=== PATIENT | male | born 1965 | race Caucasian/White ===

== ENCOUNTER 2019-07-12 06:37 | Day surgery (SDC) | payer OTHER ==
[~2019-07-12] VITALS: Ht 162.6 cm; Wt 75.7 kg
[~2019-07-12 06:37] MED LIST: 5-Htp100 MG PO; AMLO10 PO; CYCL10 PO; DIM PO; Fiorinal Capsu1 EACH PO; Flonase 0.05% N16 GM; Glucosamine Co1 EAC1 PO; LISI20 PO; Loratadine10 MG PO; SILDENAFIL20 MG PO; St. John's Wor300 M1 PO; THERA1 EACH PO; Triamcinolone A15 G3 TOP
--- NOTE | 2019-07-12 10:19 | NUR ---
Ambulatory in Day Surgery. Surgical site prepped with 2% Chlorhexidine cloth wipe. History, Chart, Medications and Allergies reviewed before start of procedure.Lungs clear T/O to Auscultation. Patient confirms NPO status and agrees with scheduled surgery. Pre-Op teaching done. Pt verbalizes understanding. Patient States Post-Procedure ride home has been arranged. Patient reports completing Chlorhexadine shower X2 prior to admission to hospital.
--- NOTE | 2019-07-12 13:12 | NUR ---
Patient up to Ambulate independently. Gait steady. PT ABLE TO URINATE. Discharge instructions reviewed with patient. Patient verbalizes understanding. Copy given to patient to take home. Discharged via wheelchair to private car for ride home WITH SPOUSE.
== END 2019-07-12 23:41 | disposition home or self-care (01) ==
LOC: ORSCMMR 06:37 → ORD 10:15 → ORSCMMR 10:15
PROVIDERS: Surgery
PROC: 0YU50JZ Supplement Right Inguinal Region with Synthetic Substitute, Open Approach (ICD-10-PCS; principal; 2019-07-12 10:15)
DX: K40.90 Unilateral inguinal hernia, without obstruction or gangrene, not specified as recurrent (principal); I10 Essential (primary) hypertension; Z79.899 Other long term (current) drug therapy
CPT/HCPCS: C1781; J0690; J1100; J1885; J2250; J2405; J2704; J3010; J7120

== ENCOUNTER 2019-07-15 07:01 | Day surgery (SDC) | payer OTHER ==
[~2019-07-15] VITALS: Ht 162.6 cm; Wt 74.7 kg
--- NOTE | 2019-07-15 10:11 | NUR ---
07/15/19 1011 Margot Rowe 2 HEMORRHOID BANDS PLACED. LIDOCAINE JELLY APPLIED TO ANUS BY
--- NOTE | 2019-07-15 10:45 | NUR ---
07/15/19 1045 Margot Rowe PT INSTRUCTED TO REMAIN ON A SOFT DIET AND USE COLACE FOR THE NEXT COUPLE DAYS.
--- NOTE | 2019-07-15 10:46 | NUR ---
07/15/19 1046 Margot Rowe DELAYED ENTRY 0903 DR CONNOLLY AWARE PT RECENTLY HAD INGUINAL HERNIA SURGERY ON 07/11/19
== END 2019-07-15 10:38 | disposition home or self-care (01) ==
LOC: ORSCSDS 07:01
PROVIDERS: Internal Medicine Gastroenterology
PROC: 0DJD8ZZ Inspection of Lower Intestinal Tract, Via Natural or Artificial Opening Endoscopic (ICD-10-PCS; principal; 2019-07-15 09:30)
PROC: 06LY0CC Occlusion of Hemorrhoidal Plexus with Extraluminal Device, Open Approach (ICD-10-PCS; principal; 2019-07-15 09:30)
DX: Z12.11 Encounter for screening for malignant neoplasm of colon (principal); K57.30 Diverticulosis of large intestine without perforation or abscess without bleeding; K64.8 Other hemorrhoids; I10 Essential (primary) hypertension; Z87.891 Personal history of nicotine dependence; Z79.899 Other long term (current) drug therapy
CPT/HCPCS: J2704; J7120

== ENCOUNTER 2019-07-18 06:41 | Day surgery (SDC) | payer OTHER ==
[~2019-07-18] VITALS: Ht 162.6 cm; Wt 75.5 kg
--- NOTE | 2019-07-18 07:33 | NUR ---
07/18/19 0733 Luna Wong BLOOD FOR PRP DRAWN AND DELIVERED TO OR AND SPUN.
== END 2019-07-18 11:32 | disposition home or self-care (01) ==
LOC: ORSCSDS 06:41
PROVIDERS: Orthopaedic Surgery
PROC: 0LS24ZZ Reposition Left Shoulder Tendon, Percutaneous Endoscopic Approach (ICD-10-PCS; principal; 2019-07-18 08:30)
PROC: 0LU24JZ Supplement Left Shoulder Tendon with Synthetic Substitute, Percutaneous Endoscopic Approach (ICD-10-PCS; principal; 2019-07-18 08:30)
PROC: 0RNK4ZZ Release Left Shoulder Joint, Percutaneous Endoscopic Approach (ICD-10-PCS; principal; 2019-07-18 08:30)
PROC: 0LQ24ZZ Repair Left Shoulder Tendon, Percutaneous Endoscopic Approach (ICD-10-PCS; principal; 2019-07-18 08:30)
DX: S46.002A Unspecified injury of muscle(s) and tendon(s) of the rotator cuff of left shoulder, initial encounter (principal); M75.22 Bicipital tendinitis, left shoulder; M75.42 Impingement syndrome of left shoulder; I10 Essential (primary) hypertension; Z79.899 Other long term (current) drug therapy; Z87.891 Personal history of nicotine dependence
CPT/HCPCS: 82947; C1713; J0171; J0690; J1100; J2250; J2370; J2405; J2704; J2795; J3010; J7120

== ENCOUNTER 2020-03-31 09:20 | Day surgery (SDC) | payer OTHER ==
[~2020-03-31] VITALS: Ht 162.6 cm; Wt 76.1 kg
--- NOTE | 2020-03-31 13:11 | NUR ---
03/31/20 1311 Lizabeth Wang ASSUMED CARE OF PATIENT FROM [facility]. AT SIDE. PATIENT TOLERATING PO FLUIDS/FOOD. VSS. C/O PAIN FOR WHICH HE HAS BEEN MEDICATED FOR. WILL CONTINUE TO MONITOR.
--- NOTE | 2020-03-31 13:52 | NUR ---
03/31/20 1352 Kamilah Lynch LATE ENTRY: 1 MG EPI ADDED TO EACH OF THE FIRST 3 BAGS OF LR FOR IRRIGATION.
== END 2020-03-31 14:13 | disposition home or self-care (01) ==
LOC: ORSCSDS 09:20
PROVIDERS: Orthopaedic Surgery
PROC: 0MQP4ZZ Repair Left Knee Bursa and Ligament, Percutaneous Endoscopic Approach (ICD-10-PCS; principal; 2020-03-31 10:24)
PROC: 0SQD4ZZ Repair Left Knee Joint, Percutaneous Endoscopic Approach (ICD-10-PCS; principal; 2020-03-31 10:24)
DX: S83.512A Sprain of anterior cruciate ligament of left knee, initial encounter (principal); M22.42 Chondromalacia patellae, left knee; S83.242A Other tear of medial meniscus, current injury, left knee, initial encounter; I10 Essential (primary) hypertension; Z87.891 Personal history of nicotine dependence; Z79.899 Other long term (current) drug therapy
CPT/HCPCS: A9270-GY; C1713; J0171; J0690; J1100; J2250; J2370; J2405; J2704; J2795; J3010; J7120

== ENCOUNTER → 2023-11-27 | Outpatient (CLI) | payer OTHER ==
[~2023-11-27] MED LIST changes: +AMOCLA875 PO; +ATOR80 PO; +DUTA.5 PO; +Flomax0.4 MG PO; +PROBIOTIC1 EA13 PO; +TRAZ50 PO
[2023-11-27 17:41] LABS: BASOPHILS ABSOLUTE AUTO 0.07 K/mm3 (0.00-0.23); BASOPHILS PERCENT AUTO 1 % (0-2); EOSINOPHILS ABSOLUTE AUTO 0.19 K/mm3 (0.00-0.68); EOSINOPHILS PERCENT AUTO 2 % (0-6); Hemoglobin 13.3 g/dL (13.5-17.5); IMMATURE GRAN ABSOLUTE AUTO 0.04 K/mm3 (0.00-0.10); IMMATURE GRAN PERCENT AUTO 0 % (0-1); LYMPHOCYTES PERCENT AUTO 25 % (21-46); MONOCYTES ABSOLUTE AUTO 0.78 K/mm3 (0.16-1.47); MONOCYTES PERCENT AUTO 7 % (4-13); Mean Corpuscular HGB 29.5 pg (26.0-34.0); Mean Corpuscular HGB Conc 33.3 g/dL (31.5-36.5); Mean Corpuscular Volume 89 fL (80-100); Mean Platelet Volume 9.4 fL (9.1-12.4); NEUTROPHILS ABSOLUTE AUTO 6.88 K/mm3 (1.96-9.15); NEUTROPHILS PERCENT AUTO 65 % (41-73); Platelet Count 277 K/mm3 (150-400); RDW Coefficient Variation 13.4 % (11.7-14.2); RDW Standard Deviation 43.9 fL (35.1-46.3); Red Blood Cell Count 4.51 M/mm3 (4.30-5.90); White Blood Cell Count 10.56 K/mm3 (4.00-11.30)
[2023-11-27 18:22] LABS: Albumin, Blood 4.4 g/dL (3.4-5.0); Albumin/Globulin Ratio 1.5 (0.8-1.8); Alk Phos 96 U/L (50-136); Anion Gap 7 mmol/L (3-11); Aspartate Aminotrans (AST/SGOT 27 U/L (12-37); Bilirubin, Total 0.6 mg/dL (0.1-1.0); Blood Urea Nitrogen 14 mg/dL (8-24); CHOL/HDL RATIO 3.2; CO2, Blood 31 mmol/L (21-32); Chloride, Blood 101 mmol/L (98-108); Cholesterol 206 mg/dL (50-200); Creatinine, Blood 0.93 mg/dL (0.60-1.20); Glomerular Filtration Rate 95 (60-); Glucose, Blood 99 mg/dL (70-99); HDL Cholesterol 64 mg/dL (>39); LDL/HDL RATIO 1.8; Low Density Lipoprotein Chol 114 mg/dL (0-110); Potassium, Blood 3.8 mmol/L (3.5-5.5); Sodium, Blood 135 mmol/L (136-145); Total Protein, Blood 7.4 g/dL (6.4-8.2); Triglycerides 142 mg/dL (30-160); Very Low Density Lipoprot Chol 28 mg/dL (6-32)
[2023-11-27 18:31] LABS: Alanine Aminotransfer (ALT/SGP 46 U/L (12-78)
== END | disposition home or self-care (01) ==
LOC: LAB SHORT 15:55 → LAB 15:55
PROVIDERS: Physician Assistant
DX: I10 Essential (primary) hypertension (principal); R73.03 Prediabetes
CPT/HCPCS: 36415; 80053; 80061; 83036; 85025